=== PATIENT | male | born 1985 | race American Indian/Alaskan Native ===

== ENCOUNTER 2022-04-22 18:23 | Emergency (ER) | payer SELFPAY ==
[2022-04-22 18:48] VITALS: BP 155/96
[2022-04-22] MEDS ORDERED: ACETAMINOPHEN 325 MG TAB PO ONE (19:44)
[2022-04-22] MEDS ORDERED: IBUPROFEN 600 MG TAB PO ONE (19:44)
[2022-04-23] MEDS ORDERED: HYDROcodone/ACETAMINOPHEN 5-325 MG TAB PO STA (00:47)
--- NOTE | 2022-04-23 01:07 | Emergency Department Report ---
ED ENT HPI - General Chief complaint: Dental/Oral Stated complaint: MOUTH PAIN Time Seen by Provider: 04/22/22 20:38 Source: patient Mode of arrival: Ambulatory Limitations: No Limitations - History of Present Illness MD complaint: tooth pain -: Gradual Location: tooth # 1 - filling out. area mild erythema lwith tenderness on palpation Severity: mild Consistency: constant Improves with: none Worsens with: none Context- Dental: history of dental caries - Related Data Previous Rx's Medication Instructions Recorded Last Taken Type Amoxicillin [Amoxicillin TAB] 875 mg PO BID #20 tablet 04/23/22 Unknown Rx Chlorhexidine Mouthwash [Peridex] 15 ml MM BID #1 bottle 04/23/22 Unknown Rx Lidocaine Viscous 2% 5 ml MM Q3H PRN #120 udc 04/23/22 Unknown Rx traMADoL [Ultram] 50 mg PO Q6HR PRN #20 tablet 04/23/22 Unknown Rx Allergies Allergy/AdvReac Type Severity Reaction Status Date / Time No Known Allergies Allergy Verified 04/23/22 01:13 ED Dental HPI - General Chief complaint: Dental/Oral Stated complaint: MOUTH PAIN Time Seen by Provider: 04/22/22 20:38 Source: patient Mode of arrival: Ambulatory Limitations: No Limitations - Related Data Previous Rx's Medication Instructions Recorded Last Taken Type Amoxicillin [Amoxicillin TAB] 875 mg PO BID #20 tablet 04/23/22 Unknown Rx Chlorhexidine Mouthwash [Peridex] 15 ml MM BID #1 bottle 04/23/22 Unknown Rx Lidocaine Viscous 2% 5 ml MM Q3H PRN #120 udc 04/23/22 Unknown Rx traMADoL [Ultram] 50 mg PO Q6HR PRN #20 tablet 04/23/22 Unknown Rx Allergies Allergy/AdvReac Type Severity Reaction Status Date / Time No Known Allergies Allergy Verified 04/23/22 01:13 ED Review of Systems ROS: Stated complaint: MOUTH PAIN Other details as noted in HPI ED Past Medical Hx - Past Medical History Previous Medical History?: Yes Hx Hypertension: Yes Additional medical history: Leukemia - Surgical History Past Surgical History?: No - Medications Home Medications: Home Medications Medication Instructions Recorded Confirmed Last Taken Type Amoxicillin [Amoxicillin TAB] 875 mg PO BID #20 tablet 04/23/22 Unknown Rx Chlorhexidine Mouthwash [Peridex] 15 ml MM BID #1 bottle 04/23/22 Unknown Rx Lidocaine Viscous 2% 5 ml MM Q3H PRN #120 udc 04/23/22 Unknown Rx traMADoL [Ultram] 50 mg PO Q6HR PRN #20 tablet 04/23/22 Unknown Rx ED Physical Exam - General Limitations: No Limitations General appearance: alert, in no apparent distress - Head Head exam: Present: atraumatic, normocephalic - Eye Eye exam: Present: normal appearance - ENT ENT exam: Present: mucous membranes moist, other (dental careie with lost filling. erosion noted. ) - Neck Neck exam: Present: normal inspection - Respiratory Respiratory exam: Present: normal lung sounds bilaterally. Absent: respiratory distress - Cardiovascular Cardiovascular Exam: Present: regular rate, normal rhythm. Absent: systolic murmur, diastolic murmur, rubs, gallop - GI/Abdominal GI/Abdominal exam: Present: soft, normal bowel sounds - Rectal Rectal exam: Present: deferred - Extremities Exam Extremities exam: Present: normal inspection - Back Exam Back exam: Present: normal inspection - Neurological Exam Neurological exam: Present: alert, oriented X3 - Psychiatric Psychiatric exam: Present: normal affect, normal mood - Skin Skin exam: Present: warm, dry, intact, normal color. Absent: rash ED Course Vital Signs 04/22/22 18:45 Temperature 98.3 F Pulse Rate 60 Respiratory 20 Rate Blood Pressure 155/96 [Right] O2 Sat by Pulse 100 Oximetry Critical care attestation.: If time is entered above; I have spent that time in minutes in the direct care of this critically ill patient, excluding procedure time. ED Disposition Clinical Impression: Infected dental caries Disposition: HOME / SELF CARE / HOMELESS Is pt being admited?: No Does the pt Need Aspirin: No Condition: Stable Instructions: Dental Abscess, [id number], Preventive Dental Care, Adult Prescriptions: Amoxicillin [Amoxicillin TAB] 875 mg PO BID #20 tablet Lidocaine Viscous 2% 5 ml MM Q3H PRN #120 udc PRN Reason: Pain, Moderate (4-6) Chlorhexidine Mouthwash [Peridex] 15 ml MM BID #1 bottle traMADoL [Ultram] 50 mg PO Q6HR PRN #20 tablet PRN Reason: Pain Referrals: SAMMI MERRILL MD [Primary Care Provider] - 3-5 Days [facility] [Outside] - 3-5 Days
== END 2022-04-23 01:25 | disposition home or self-care (01) ==
LOC: ED 18:23
DX: K02.9 Dental caries, unspecified (principal); I10 Essential (primary) hypertension; Z79.899 Other long term (current) drug therapy
CPT/HCPCS: 99282